=== PATIENT | male | born 2000 | race Hispanic/Latino ===

== ENCOUNTER 2022-06-30 10:02 | Emergency (ER) | payer SELFPAY ==
[2022-06-30] MEDS ORDERED: Acetaminophen 500 MG TAB ONE (11:22)
== END 2022-06-30 12:57 | disposition home or self-care (01) ==
LOC: ERS 10:02
DX: J02.9 Acute pharyngitis, unspecified (principal); Z87.891 Personal history of nicotine dependence
CPT/HCPCS: 87081; 87430; 87804; 99283